=== PATIENT | female | born 1995 | race American Indian/Alaskan Native ===

== ENCOUNTER 2017-06-30 11:12 | Emergency (ER) | payer SELFPAY ==
[2017-06-30 11:23] VITALS: BP 122/75
[2017-06-30] MEDS ORDERED: TRIMOX PO ONE (12:04)
--- NOTE | 2017-06-30 12:12 | Emergency Department Report ---
HPI - General Chief Complaint: Sore Throat Time Seen by Provider: 06/30/17 12:04 - HPI HPI: 22-year-old female presents to the emergency department with complaint of a sore throat has been going on for the past 3 days. She says it feels like she is swallowing glass every time that she swallows. She denies any drooling or trismus. She denies any fever. She also complains of some associated left-sided neck swelling. She has not taken anything for her symptoms. Presentation. She denies any past medical history. No recent travel or sick contacts at home. She does not have a primary care physician for follow-up. ED Past Medical Hx - Past Medical History Previous Medical History?: No - Surgical History Past Surgical History?: No - Medications Home Medications: Home Medications Medication Instructions Recorded Confirmed Last Taken Type Amoxicillin [Trimox CAP] 500 mg PO Q8H #30 capsule 06/30/17 Unknown Rx ED Review of Systems ROS: Stated complaint: SORE THROAT Other details as noted in HPI Comment: All other systems reviewed and negative Constitutional: denies: chills, fever Eyes: denies: eye pain, eye discharge, vision change ENT: throat pain. denies: congestion Respiratory: denies: cough, shortness of breath, wheezing Cardiovascular: denies: chest pain, palpitations Gastrointestinal: denies: abdominal pain, nausea, diarrhea Genitourinary: denies: urgency, dysuria, discharge Musculoskeletal: denies: back pain, joint swelling, arthralgia Skin: denies: rash, lesions Neurological: denies: headache, weakness, paresthesias Physical Exam - Physical Exam Vital Signs: Vital Signs 06/30/17 11:22 Temperature 99.4 F Pulse Rate 98 H Respiratory 18 Rate Blood Pressure 122/75 O2 Sat by Pulse 98 Oximetry Physical Exam: GENERAL: The patient is well-developed well-nourished. HENT: Normocephalic. Atraumatic. Patient has moist mucous membranes. There is bilateral tonsillar hypertrophy and some erythema. There is a left tonsillar exudate. No drooling or trismus. EYES: Extraocular motions are intact. Pupils equal reactive to light bilaterally. NECK: Supple. Full range of motion. There is some fullness to the left side of the neck to the submandibular region. Most likely lymphadenopathy. CHEST/LUNGS: Clear to auscultation. There is no respiratory distress noted. HEART/CARDIOVASCULAR: Regular. There is no tachycardia. There is no murmur. ABDOMEN: Abdomen is soft, nontender. Patient has normal bowel sounds. There is no abdominal distention. SKIN: Skin is warm and dry. NEURO: The patient is awake, alert, and oriented. The patient is cooperative. The patient has no focal neurologic deficits. The patient has normal speech. MUSCULOSKELETAL: There is no tenderness or deformity. There is no evidence of acute injury. ED Course Vital Signs 06/30/17 11:22 Temperature 99.4 F Pulse Rate 98 H Respiratory 18 Rate Blood Pressure 122/75 O2 Sat by Pulse 98 Oximetry ED Medical Decision Making - Medical Decision Making Patient is here with a sore throat. He has tonsillar hypertrophy, some erythema and left-sided tonsillar exudates. She'll be treated as a strep pharyngitis. Vital signs stable and being afebrile. Given some primary care physician referrals but will return to the ER with any worsening of her symptoms or any acute distress. - Differential Diagnosis viral URI, strep pharyngitis, mononucleosis Critical Care Time: No Critical care attestation.: If time is entered above; I have spent that time in minutes in the direct care of this critically ill patient, excluding procedure time. ED Disposition Clinical Impression: Strep pharyngitis Disposition: -01 TO HOME OR SELFCARE Is pt being admited?: No Condition: Stable Instructions: Strep Throat (ED) Additional Instructions: Take the antibiotics as prescribed. Follow up with a primary care physician in the next few days. Return to the emergency Department with any worsening of her symptoms, development of fever, or any acute distress. Prescriptions: Amoxicillin [Trimox CAP] 500 mg PO Q8H #30 capsule Referrals: [facility] [Outside] - 3-[address] [facility] [Outside] - 3-5 Days Time of Disposition: 12:12
== END 2017-06-30 12:19 | disposition home or self-care (01) ==
LOC: ED 11:12
DX: J02.0 Streptococcal pharyngitis (principal)
CPT/HCPCS: 99282

== ENCOUNTER 2019-01-28 15:05 | Emergency (ER) | payer SELFPAY ==
--- NOTE | 2019-01-28 15:43 | Emergency Department Report ---
Blank Doc - Documentation Documentation: 23-year-old female that presents with abdominal pain and n/v. This initial assessment/diagnostic orders/clinical plan/treatment(s) is/are subject to change based on patient's health status, clinical progression and re- assessment by fellow clinical providers in the ED. Further treatment and workup at subsequent clinical providers discretion. Patient/guardians urged not to elope from the ED as their condition may be serious if not clinically assessed and managed. Initial orders include: 1- Patient sent to [facility] for further evaluation and treatment 2- labs 3- UA
[2019-01-28 16:33] LABS: Hemoglobin 12.9 gm/dl (10.1-14.3); Mean Corpuscular HGB Conc 34 % (30-34); Mean Corpuscular Volume 86 fl (79-97); Platelet Count 224 K/mm3 (140-440); Red Blood Count 4.44 M/mm3 (3.65-5.03); Red Cell Distribution Width 13.3 % (13.2-15.2)
[2019-01-28 16:42] LABS: Bacteria,Urine 1+ /HPF (Negative); Bilirubin,Urine NEG (Negative); Blood,Urine NEG (Negative); Color,Urine Yellow (Yellow); Mucus,Urine 1+ /HPF
[2019-01-28 16:57] LABS: Alanine Aminotransferase 28 units/L (7-56); Albumin 4.4 g/dL (3.9-5); BUN/Creatinine Ratio 22; Blood Urea Nitrogen 13 mg/dL (7-17); Calcium 8.9 mg/dL (8.4-10.2); Hemolysis Index 6
[2019-01-28 17:41] LABS: Basophils % (Manual) 0 % (0.0-1.8); Eosinophils % (Manual) 0 % (0.0-4.3); Total Cells Counted 100
[2019-01-28 17:42] LABS: Large Platelets 1+; Platelet Estimate Cons; Stomatocytes Few
[2019-01-28 17:53] LABS: RBC Morphology Normal
[2019-01-28] MEDS ORDERED: SODIUM CHLORIDE 0.9% 1000 ML 1,000 ML IV ONE (19:42)
[2019-01-28] MEDS ORDERED: cefTRIAXone/NS 1 GM/50 ML 1 GM/50 ML BAG IV ONE (19:42)
[2019-01-28] MEDS ORDERED: KETOROLAC 30 MG/1 ML INJ IV ONE (19:42)
[2019-01-28] MEDS ORDERED: ONDANSETRON 4 MG/2 ML INJ IV ONE (19:42)
[2019-01-28] MEDS ORDERED: FAMOTIDINE 20 MG/2 ML INJ IV ONE (19:42)
[2019-01-28 20:33] VITALS: BP 102/63
--- NOTE | 2019-01-28 22:32 | Emergency Department Report ---
ED N/V/D HPI - General Chief complaint: Nausea/Vomiting/Diarrhea Stated complaint: VOMIT/DIARRHEA/STOMACH PAIN Time Seen by Provider: 01/28/19 15:42 Source: patient Mode of arrival: Ambulatory Limitations: No Limitations - History of Present Illness Initial comments: Patient is a nulliparous 23-year-old white female with no past medical history who presents to the ED with complaint of acute onset persistent nausea, vomiting, diarrhea and abdominal pain for the last 12 hours after eating at a restaurant 24 hours ago. Patient states that she has not been able to keep anything down since the onset of the symptoms and now feels weak and tired. Patient states that the last meal she ate was hamburger sandwich from a restaurant 24 hours ago. Patient states that this is at home with similar symptoms. Patient denies fever, chills, chest pain, shortness of breath, dysuria, urinary frequency and urgency, vaginal bleeding, vaginal discharge or sore throat and headache MD complaint: nausea, vomiting, diarrhea, abdominal pain -: Sudden, hour(s) (12) Description of Vomiting: food contents, watery Description of Diarrhea: water Associated Abdominal Pain: Yes (diffuse) Location: diffuse Radiation: none Severity: moderate Pain Scale: 6 Quality: aching, dull Consistency: constant Improves with: none Worsens with: none Context: possible food poisoning Associated Symptoms: denies other symptoms, loss of appetite, malaise, nausea/vomiting, weakness. denies: myalgias, chest pain, cough, diaphoresis, fever/chills, headaches, rash, dysuria, shortness of breath, syncope, other - Related Data Previous Rx's Medication Instructions Recorded Last Taken Type Amoxicillin [Trimox CAP] 500 mg PO Q8H #30 capsule 06/30/17 Unknown Rx Dicyclomine [Bentyl] 20 mg PO Q6H PRN #24 tablet 01/28/19 Unknown Rx Diphenoxylate/Atropine [Lomotil] 1 tab PO Q4H PRN #15 tablet 01/28/19 Unknown Rx Ondansetron [Zofran Odt] 4 mg PO Q6HR PRN #20 tab.rapdis 01/28/19 Unknown Rx cephALEXin [Keflex] 500 mg PO Q8HR #30 cap 01/28/19 Unknown Rx Allergies Allergy/AdvReac Type Severity Reaction Status Date / Time No Known Allergies Allergy Unverified 06/30/17 11:22 ED Review of Systems ROS: Stated complaint: VOMIT/DIARRHEA/STOMACH PAIN Other details as noted in HPI Constitutional: chills, fever, malaise, weakness Eyes: denies: eye pain, eye discharge, vision change ENT: denies: ear pain, throat pain Respiratory: denies: cough, shortness of breath, wheezing Cardiovascular: denies: chest pain, palpitations Endocrine: no symptoms reported Gastrointestinal: abdominal pain, nausea, vomiting, diarrhea Genitourinary: denies: urgency, dysuria, discharge Musculoskeletal: denies: back pain, joint swelling, arthralgia Skin: denies: rash, lesions Neurological: denies: headache, weakness, paresthesias Psychiatric: denies: anxiety, depression Hematological/Lymphatic: denies: easy bleeding, easy bruising ED Past Medical Hx - Past Medical History Previous Medical History?: No - Surgical History Past Surgical History?: No - Social History Smoking Status: Never Smoker Substance Use Type: None - Medications Home Medications: Home Medications Medication Instructions Recorded Confirmed Last Taken Type Amoxicillin [Trimox CAP] 500 mg PO Q8H #30 capsule 06/30/17 Unknown Rx Dicyclomine [Bentyl] 20 mg PO Q6H PRN #24 tablet 01/28/19 Unknown Rx Diphenoxylate/Atropine [Lomotil] 1 tab PO Q4H PRN #15 tablet 01/28/19 Unknown Rx Ondansetron [Zofran Odt] 4 mg PO Q6HR PRN #20 tab.rapdis 01/28/19 Unknown Rx cephALEXin [Keflex] 500 mg PO Q8HR #30 cap 01/28/19 Unknown Rx ED Physical Exam - General Limitations: No Limitations General appearance: alert, in no apparent distress - Head Head exam: Present: atraumatic, normocephalic, normal inspection - Eye Eye exam: Present: normal appearance, PERRL, EOMI - ENT ENT exam: Present: normal exam, mucous membranes moist, TM's normal bilaterally, normal external ear exam - Neck Neck exam: Present: normal inspection, full ROM - Respiratory Respiratory exam: Present: normal lung sounds bilaterally. Absent: respiratory distress, wheezes, rales, rhonchi, chest wall tenderness - Cardiovascular Cardiovascular Exam: Present: regular rate, normal rhythm, normal heart sounds. Absent: systolic murmur, diastolic murmur, rubs, gallop - GI/Abdominal GI/Abdominal exam: Present: soft, tenderness (mildly diffuse abdominal tenderness), normal bowel sounds. Absent: guarding, rebound, hyperactive bowel sounds - Extremities Exam Extremities exam: Present: normal inspection, full ROM, normal capillary refill - Back Exam Back exam: Present: normal inspection, full ROM. Absent: tenderness, CVA tenderness (L) - Neurological Exam Neurological exam: Present: alert, oriented X3, CN II-XII intact, normal gait, reflexes normal - Psychiatric Psychiatric exam: Present: normal affect, normal mood - Skin Skin exam: Present: warm, dry, intact, normal color. Absent: rash ED Course Vital Signs 01/28/19 01/28/19 01/28/19 15:42 20:32 23:00 Temperature 99.5 F 100.0 F H 99.5 F Pulse Rate 90 115 H 98 H Respiratory 16 18 16 Rate Blood Pressure 121/53 Blood Pressure 102/63 [Right] O2 Sat by Pulse 96 96 95 Oximetry ED Medical Decision Making - Lab Data Result diagrams: 01/28/19 16:12 01/28/19 16:12 - Medical Decision Making This is a 23-year-old nulliparous female who presented to the ED with intractable nausea and vomiting and diarrhea for over 12 hours after eating a sandwich from a restaurant 24 hours ago. In the ED, patient is alert and oriented 3 and is not in distress, initially febrile and tachycardic in triage. On reevaluation, patient's fever has resolved with medications and the patient feeling much better and is able to keep oral fluids with no vomiting. Lab test results were reviewed and on actionable except for urinalysis that showed mild urinary tract infection. Patient was discharged home on medications including antiemetics and antibiotics for UTI and was advised to follow-up with her primary care physician in 5-7 days for reevaluation or return to the ED immediately if symptoms get worse. - Differential Diagnosis Viral gastroenteritis; UTI; Gastritis; Dehydration; GERD Critical care attestation.: If time is entered above; I have spent that time in minutes in the direct care of this critically ill patient, excluding procedure time. ED Disposition Clinical Impression: Viral gastroenteritis, Nausea, vomiting and diarrhea, Acute urinary tract infection, Fever and chills Disposition: TO HOME OR SELFCARE Is pt being admited?: No Does the pt Need Aspirin: No Condition: Stable Instructions: Gastroenteritis (ED), Acute Nausea and Vomiting (ED), Abdominal Pain (ED) Additional Instructions: Maintain a clear liquid diet for 12-24 hours, take medications and drink plenty of fluids. Follow-up with your primary care physician in 5-7 days for reevalua tion or return to the ED immediately if symptoms get worse. Prescriptions: Dicyclomine [Bentyl] 20 mg PO Q6H PRN #24 tablet PRN Reason: Pain , Severe (7-10) cephALEXin [Keflex] 500 mg PO Q8HR #30 cap Diphenoxylate/Atropine [Lomotil] 1 tab PO Q4H PRN #15 tablet PRN Reason: Diarrhea Ondansetron [Zofran Odt] 4 mg PO Q6HR PRN #20 tab.rapdis PRN Reason: Nausea Referrals: PRIMARY CARE, [Primary Care Provider] - 3-5 Days Forms: Work/School Release Form(ED) Time of Disposition: 22:30 Print Language: MAORI
[2019-01-28] MEDS ORDERED: ACETAMINOPHEN 500 MG TAB PO ONE (22:43)
== END 2019-01-28 23:00 | disposition home or self-care (01) ==
LOC: ED 15:05
DX: A08.4 Viral intestinal infection, unspecified (principal); N39.0 Urinary tract infection, site not specified; Z79.899 Other long term (current) drug therapy
CPT/HCPCS: 36415; 80053; 81001; 83690; 84703; 85007; 85025; 87086; 96365; 96375; 99283; J0696; J1885; J2405; J7030